=== PATIENT | female | born 1965 | race Caucasian/White ===

== ENCOUNTER 2017-06-21 18:45 | Emergency (ER) | payer BC ==
[~2017-06-21] VITALS: Ht 167.6 cm; Wt 131.5 kg
[2017-06-21 18:49] VITALS: BP_SYST 159
[2017-06-21] MEDS ORDERED: DIPHENHYDRAMINE INJ 50 MG/ML VIAL IVP ONE (19:15)
[2017-06-21] MEDS ORDERED: methylPREDNISolone SOD SUCC/PF 62.5 MG/ML VIAL IVP ONE (19:15)
[2017-06-21 20:24] VITALS: BP_SYST 134
== END 2017-06-21 20:24 | disposition home or self-care (01) ==
LOC: SED 18:45
DX: T78.3XXA Angioneurotic edema, initial encounter (principal); I10 Essential (primary) hypertension; F41.9 Anxiety disorder, unspecified; E78.5 Hyperlipidemia, unspecified; F32.9 Major depressive disorder, single episode, unspecified; Z90.710 Acquired absence of both cervix and uterus
CPT/HCPCS: 96374; 96375; 99284; J1200; J2930

== ENCOUNTER 2022-12-07 06:25 | Emergency (ER) | payer BC ==
[~2022-12-07] VITALS: Ht 167.6 cm; Wt 102.1 kg
[~2022-12-07 06:25] MED LIST: BUPR200T2 PO; BUSP10TA3 PO; CALC-823 PO; CARV12.548 PO; CAT.1 PO; CLON1TAB12 PO; CYCL10TA24 PO; DILT120C89 PO; DULO60CA42 PO; ESTR1.25 PO; FAMO10TA41 PO; GABA-533 PO; IBUP-1971 PO; LOVA40TA75 PO; MULT-1159 PO; OMEG1CAP55 PO; OXYC-133 PO; POLY17PO4 PO; QUET400T5 PO
[2022-12-07 06:32] VITALS: BP_SYST 163
[2022-12-07] MEDS ORDERED: MORPHINE 4 MG INJ. 4 MG/ML VIAL IVP ONE (06:45)
[2022-12-07] MEDS ORDERED: ONDANSETRON HCL 4 MG/2 ML VIAL IVP ONE (06:45)
[2022-12-07] MEDS ORDERED: CARV25TA55 PO (06:55)
[2022-12-07] MEDS ORDERED: HYDR-4039 PO (06:58)
[2022-12-07] MEDS ORDERED: LIP20 PO (06:59)
[2022-12-07] MEDS ORDERED: POTA-197 PO (06:59)
[2022-12-07] MEDS ORDERED: METF-379 PO (07:00)
[2022-12-07] MEDS ORDERED: ESKE84SP (07:04)
[2022-12-07] MEDS ORDERED: BUSP30TA2 PO (07:05)
[2022-12-07] MEDS ORDERED: DULO60CA42 PO (07:05)
[2022-12-07] MEDS ORDERED: BREX1TAB PO (07:06)
[2022-12-07] MEDS ORDERED: BUPR200T2 PO (07:07)
[2022-12-07] MEDS ORDERED: QUET300T2 PO (07:07)
[2022-12-07] MEDS ORDERED: CALC-1085 PO (07:10)
[2022-12-07] MEDS ORDERED: MULT-976 PO (07:10)
[2022-12-07] MEDS ORDERED: MELA1TAB64 PO (07:11)
[2022-12-07] MEDS ORDERED: fentaNYL CITRATE/PF 100 MCG/2 ML AMP IVP ONE (07:45)
[2022-12-07] MEDS ORDERED: PROPOFOL 200MG/ 20ML VIAL (DIPRIVAN) IV ONE ×2 (07:45→09:15)
[2022-12-07 08:45] LABS: BASOPHILS # (AUTO) 0.1 K/uL (0.0-0.2); BASOPHILS % (AUTO) 0.7 % (0.0-2.0); EOSINOPHILS # (AUTO) 0.1 K/uL (0.0-0.4); EOSINOPHILS % (AUTO) 0.9 % (0.0-4.0); HEMATOCRIT 39.9 % (36-48); HEMOGLOBIN 13.2 g/dL (12.0-16.0); LYMPHOCYTES % (AUTO) 22.9 % (20.5-51.5); MEAN CORPUSCULAR HEMOGLOBIN 28 pg (27-31); MEAN CORPUSCULAR HGB CONC 33 % (32-36); MEAN CORPUSCULAR VOLUME 84 fL (79.0-98.0); MONOCYTES # (AUTO) 0.4 K/uL (0.0-1.0); MONOCYTES % (AUTO) 4.9 % (1.7-9.3); NEUTROPHILS # (AUTO) 6.1 K/uL (1.8-7.7); NEUTROPHILS % (AUTO) 70.6 % (40.0-70.0); PLATELET COUNT (AUTO) 228 K/uL (130-430); RED BLOOD CELL COUNT(AUTO) 4.76 MIL/uL (4.2-6.2); RED CELL DISTRIBUTION WIDTH 13.8 % (9.0-15.0); WHITE BLOOD COUNT (AUTO) 8.7 K/uL (4.8-10.8)
[2022-12-07] MEDS ORDERED: NACL 0.9% 1,000 ML IV ONE (09:15)
[2022-12-07 09:18] LABS: CALCIUM 9.9 mg/dL (8.4-11.0); CREATININE 1.57 mg/dL (0.55-1.30)
[2022-12-07 09:22] LABS: ALBUMIN 3.7 g/dL (3.4-4.8); TOTAL BILIRUBIN 0.5 mg/dL (0.0-1.0)
[2022-12-07] MEDS ORDERED: OXYC-128 PO (10:31)
[2022-12-07] MEDS ORDERED: NAPR-1172 PO (10:31)
[2022-12-07 10:57] VITALS: BP_SYST 178
== END 2022-12-07 11:03 | disposition home or self-care (01) ==
LOC: SED 06:25
DX: S82.841A Displaced bimalleolar fracture of right lower leg, initial encounter for closed fracture (principal); E11.9 Type 2 diabetes mellitus without complications; I10 Essential (primary) hypertension; E78.5 Hyperlipidemia, unspecified; Z88.1 Allergy status to other antibiotic agents; Z88.2 Allergy status to sulfonamides; Z91.041 Radiographic dye allergy status; Z88.8 Allergy status to other drugs, medicaments and biological substances; Z79.899 Other long term (current) drug therapy; W10.9XXA Fall (on) (from) unspecified stairs and steps, initial encounter; Y93.89 Activity, other specified; Y92.89 Other specified places as the place of occurrence of the external cause; Y99.8 Other external cause status
CPT/HCPCS: 27810; 80053; 85025; 36415; 71045; 73610; 99152; 96375; 93005; 73600; 99285; 96361; 96374; J2405; J2704; J3010; J2270; J7030